=== PATIENT | male | born 1975 | race Hispanic/Latino ===

== ENCOUNTER 2024-09-14 09:48 | Outpatient (CLI) | payer OTHER, SELFPAY ==
[2024-09-14 11:35] LABS: #Basophils 0.04 10x3/uL (0.0-0.2); %Basophils 0.5 % (0.0-1.0); %Eosinophils 4.7 % (0.0-10.0); %Lymphocytes 23.5 % (21.0-51.0); %Monocytes 6.3 % (0.0-10.0); %Neutrophils 64.6 % (42.0-75.0); Hematocrit 41.2 % (42.0-52.0); Hemoglobin 14.3 g/dL (14.0-18.0); Mean Corpuscular HGB CONC 34.7 g/dL (32.0-36.0); Mean Corpuscular Hemoglobin 30.8 pg (27.0-31.0); Mean Corpuscular Volume 88.6 fL (78.0-98.0); Mean Platelet Volume 10.4 fL (7.4-10.4); Platelet Count 261 10x3/uL (130-400); RBC Distribution Width 13.2 % (11.5-14.5); Red Blood Cell (RBC) Count 4.65 mill/uL (4.70-6.10)
[2024-09-14 14:03] LABS: Anion Gap 12 mmol/L (10-20); BUN (Urea Nitrogen) 20 mg/dL (8.9-20.6); Calc. Creatinine Clearance 0 mL/min (70-130); Calcium 8.7 mg/dL (7.8-10.44); Carbon Dioxide 22 mmol/L (22-29); Chloride 110 mmol/L (98-107); Estimated GFR 108; Glucose 123 mg/dL (70-105); Potassium 3.7 mmol/L (3.5-5.1); Sodium 140 mmol/L (136-145)
== END 2024-09-14 09:49 | disposition home or self-care (01) ==
LOC: LABBT 09:48
PROVIDERS: ATTEND Orthopaedic Surgery
DX: Z01.818 Encounter for other preprocedural examination (principal); S52.301A Unspecified fracture of shaft of right radius, initial encounter for closed fracture
CPT/HCPCS: 80048; 85025; 93005; 93010

== ENCOUNTER 2024-09-16 07:11 | Day surgery (SDC) | payer OTHER ==
[2024-09-14 10:16] VITALS: BMI 40.1
[2024-09-16] MEDS ORDERED: Lidocaine 2% PF 5 ML VIAL ONE (07:12)
[2024-09-16] MEDS ORDERED: Midazolam HCl 2 mg/2 ml Vial ONE ×2 (07:12→07:44)
[2024-09-16] MEDS ORDERED: fentaNYL PF 100 MCG/2 ML SYRINGE ONE ×3 (07:12→09:07)
[2024-09-16] MEDS ORDERED: PROPOFOL 20 ML ONE ×2 (07:12→08:00)
[2024-09-16] MEDS ORDERED: Dexamethasone 20 MG/5 ML VIAL ONE (07:12)
[2024-09-16] MEDS ORDERED: Ondansetron PF 4 MG/2 ML Vial ONE (07:12)
[2024-09-16] MEDS ORDERED: EPINEPHrine 1 MG/ML VIAL ONE (07:43)
[2024-09-16] MEDS ORDERED: Lidocaine 1% (PF) 30 ML VIAL ONE (07:44)
[2024-09-16] MEDS ORDERED: Bupivacaine PF 0.5% 30 ML VIAL ONE (07:44)
[2024-09-16] MEDS ORDERED: fentaNYL 50 mcg/mL 1 mL Vial ONE (07:44)
[2024-09-16] MEDS ORDERED: CEFAZOLIN 2 GM VIAL ONE (07:46)
[2024-09-16] MEDS ORDERED: PHENYLEPHRINE-NS 100 MCG/ML 10 ML SYRINGE ONE ×3 (08:30→09:34)
[2024-09-16] MEDS ORDERED: Glycopyrrolate 0.2 MG/ML 5 ML SYRINGE ONE (08:49)
== END 2024-09-16 12:35 | disposition home or self-care (01) ==
LOC: SDC 07:11
PROVIDERS: ATTEND Orthopaedic Surgery
PROC: 3E0T3BZ Introduction of Anesthetic Agent into Peripheral Nerves and Plexi, Percutaneous Approach (ICD-10-PCS; principal; 2024-09-16)
PROC: 0PSH04Z Reposition Right Radius with Internal Fixation Device, Open Approach (ICD-10-PCS; principal; 2024-09-16)
PROC: 0RSNXZZ Reposition Right Wrist Joint, External Approach (ICD-10-PCS; principal; 2024-09-16)
DX: S52.391A Other fracture of shaft of radius, right arm, initial encounter for closed fracture (principal); S63.074A Dislocation of distal end of right ulna, initial encounter; Z79.899 Other long term (current) drug therapy; W01.0XXA Fall on same level from slipping, tripping and stumbling without subsequent striking against object, initial encounter
CPT/HCPCS: C1713; C1874; J0171; J0665; J1100; J2250; J2405; J2704; J3010